=== PATIENT | male | born 1995 | race Caucasian/White ===

== ENCOUNTER 2022-09-19 02:23 | Emergency (ER) | payer SELFPAY ==
[~2022-09-19] VITALS: Ht 172.7 cm; Wt 74.8 kg
--- NOTE | 2022-09-19 02:45 | NUR ---
Laceration to the right hand (index finger and middle finger) were cleaned.
[2022-09-19] MEDS ORDERED: TDAP DIPH,PERTUSS,TET VAC/PF 0.5 ML DISP.SYRIN IM ONE ×2 (03:15→03:24)
--- NOTE | 2022-09-19 03:33 | NUR ---
Patient discharged to in stable condition. Written and verbal after care instructions given. Patient verbalizes understanding of instructions. Stressed follow up or return to ER for worsening s/s. Patient is accompanied by [employer]
[2022-09-19 03:39] VITALS: BP 129/72
== END 2022-09-19 03:40 ==
LOC: ER 02:26
DX: S60.410A Abrasion of right index finger, initial encounter (principal); S60.412A Abrasion of right middle finger, initial encounter; W25.XXXA Contact with sharp glass, initial encounter; Y92.89 Other specified places as the place of occurrence of the external cause; Y99.8 Other external cause status
CPT/HCPCS: 90715; A4663